=== PATIENT | female | born 1995 ===

== ENCOUNTER 2021-10-24 10:45 | Emergency (ER) | payer SELFPAY ==
[2021-10-24 11:11] VITALS: BP 128/78
== END 2021-10-24 15:45 | disposition left against medical advice (07) ==
LOC: ED 10:45
DX: Z20.2 Contact with and (suspected) exposure to infections with a predominantly sexual mode of transmission (principal); Z53.21 Procedure and treatment not carried out due to patient leaving prior to being seen by health care provider